=== PATIENT | male | born 1960 | race Two or more races ===

== ENCOUNTER 2024-05-06 06:32 | Emergency (ER) | payer MEDICAID, SELFPAY ==
[~2024-05-06] VITALS: Ht 177.8 cm; Wt 94.0 kg
[2024-05-06 08:03] VITALS: BP 148/90; PULSE 80; RESP 16; TEMP 97.8; O2SAT 96
[2024-05-06] MEDS ORDERED: GABA-1308 PO (08:23)
== END 2024-05-06 08:23 | disposition home or self-care (01) ==
LOC: ER 06:32
DX: R20.2 Paresthesia of skin (principal); Z79.899 Other long term (current) drug therapy